=== PATIENT | female | born 1960 | race Caucasian/White ===

== ENCOUNTER 2017-10-19 10:51 | Inpatient (IN) | payer OTHER ==
[2017-10-19] MEDS: SOD CHLORIDE 0.9% 1,270 ML IV (11:44)
[2017-10-19 11:56] LABS: ABNORMAL IP MESSAGE 1; HEMATOCRIT 31.9 % (37.0-47.0); HEMOGLOBIN 11.1 g/dl (12.0-16.0); MEAN CORPUSCULAR HEMOGLOBIN 29.4 pg (29.0-33.0); MEAN CORPUSCULAR HGB CONC 34.8 g/dl (32.0-37.0); MEAN CORPUSCULAR VOLUME 84.6 fl (82.0-101.0); MEAN PLATELET VOLUME 11.5 fl (7.4-10.4); PLATELET COUNT 83 10^3/UL (140-415); RED BLOOD COUNT 3.77 10^6/ul (4.20-5.40)
[2017-10-19 11:58] LABS: POSITIVE DIFF @See below
[2017-10-19 11:59] LABS: ADD MAN DIFF? YES
[2017-10-19 12:17] LABS: INR 1.85; PROTIME 21.8 Sec (11.9-14.9); PT RATIO 1.7
[2017-10-19 12:18] LABS: PARTIAL THROMBOPLASTIN TIME 31.1 Sec (25.0-35.0)
[2017-10-19 12:24] LABS: ANISOCYTOSIS 2+ (0-0); BAND NEUTROPHILS #M 4.5 10^3/ul (0.0-0.6); BAND NEUTROPHILS % (M) 19 % (0-4); HYPOCHROMASIA 1+ (0-0); LYMPHOCYTES #M 0.7 10^3/ul (0.8-2.9); LYMPHOCYTES % (M) 3 % (15-51); MONOCYTE #M 1.2 10^3/ul (0.3-0.9); MONOCYTES % (M) 5 % (0-11); PLATELET ESTIMATE DECREASED; POIKILOCYTOSIS 1+ (0-0); POLYCHROMASIA 3+ (0-0); SEG NEUT #M 18.6 10^3/ul (1.6-7.5); SEGMENTED NEUTROPHILS (M) % 73 % (39-77); SMUDGE%M 2 % (0-0); TOXIC GRANULATION 2+ (0-0)
[2017-10-19] MEDS: CEFEPIME 1GM/50 ML (PMX) 50 ML IVPB (12:44)
[2017-10-19 12:59] LABS: ADD UMIC YES; UR ASCORBIC ACID NEGATIVE (NEGATIVE); UR BILIRUBIN (Dip) 1+ mg/dL (NEGATIVE); UR BLOOD (Dip) 2+ mg/dL (NEGATIVE); UR CLARITY SLIGHTLY CLOUDY (CLEAR); UR COLOR AMBER (YELLOW); UR GLUCOSE (Dip) NEGATIVE (NEGATIVE); UR KETONES (Dip) NEGATIVE (NEGATIVE); UR LEUKOCYTE ESTERASE (Dip) NEGATIVE Leu/ul (NEGATIVE); UR NITRITE (Dip) NEGATIVE (NEGATIVE); UR RBC 4 /HPF (0-5); UR SPECIFIC GRAVITY (Dip) 1.015 (1.003-1.030); UR TOTAL PROTEIN (Dip) NEGATIVE (NEGATIVE); UR UROBILINOGEN (Dip) 2+ mg/dL (NEGATIVE); UR WBC 2 /HPF (0-5)
[2017-10-19] MEDS: metroNIDAZOLE 500 MG/NS (PMX) 100 ML IVPB (13:04)
[2017-10-19 13:08] LABS: AMMONIA 37 umol/l (9-30)
[2017-10-19 13:12] LABS: LACTIC ACID 7.9 mmol/L (0.5-2.0)
[2017-10-19 13:20] LABS: ANION GAP 20 (8-16)
[2017-10-19] MEDS ORDERED: ACETAMINOPHEN 325 MG TAB PO ×2 (13:30→14:30)
[2017-10-19] MEDS ORDERED: ONDANSETRON 4 MG INJ IV ×2 (13:30→14:30)
[2017-10-19 13:32] LABS: FREE THYROXINE INDEX (Calc) 1.92 ug/ml (0.65-3.89); T3 UPTAKE 56.4 % (23.5-40.5); T4 (THYROXINE) 3.4 ug/dl (5.5-11.0)
[2017-10-19 13:55] LABS: POTASSIUM 7.1 mmol/L (3.5-5.1)
[2017-10-19 13:56] LABS: SODIUM 116 mmol/L (135-144)
[2017-10-19 13:57] LABS: ACETAMINOPHEN < 10.0 ug/ml (10.0-30.0); ALANINE AMINOTRANSFERASE 793 IU/L (13-69); ALKALINE PHOSPHATASE 705 IU/L (42-121); BILIRUBIN,INDIRECT 1.1 mg/dl (0-1.1); BLOOD UREA NITROGEN 38 mg/dl (7-20); CALCIUM 7.5 mg/dl (8.4-10.2); CARBON DIOXIDE 19 mmol/L (21-31); ETHANOL < 10.0 mg/dl; GLUCOSE 59 mg/dl (70-220); SALICYLATE < 1.0 mg/dl (5.0-30.0); TOTAL PROTEIN 4.2 g/dl (6.1-8.1)
[2017-10-19 13:58] LABS: CHLORIDE 84 mmol/L (97-110)
[2017-10-19] MEDS: NA BICARBONATE 8.4% 50 ML SYG IV (14:22)
[2017-10-19] MEDS: CA CHLORIDE 10% 10 ML SYRINGE IV (14:23)
[2017-10-19] MEDS: DEXTROSE 5%-0.45% NACL 1,000 ML IV (14:23)
[2017-10-19] MEDS: VANCOMYCIN 1 GM (PMX) 250 ML IVPB (14:23)
[2017-10-19] MEDS: DEXTROSE 50% 50 ML SYRINGE IV (14:23)
[2017-10-19] MEDS: FENTAnyl 50 MCG/ML VIAL IV (14:25)
[2017-10-19] MEDS: INSULIN REGULAR, HUMAN 100 UNIT/1 ML 3ML VIAL IVP (14:26)
[2017-10-19] MEDS ORDERED: NACL 0.9% 3 ML SYG IV (14:30)
[2017-10-19] MEDS ORDERED: VANCOMYCIN IV PER PHARMACY XX (14:30)
[2017-10-19] MEDS ORDERED: DOCUSATE SODIUM 100 MG CAP PO (14:30)
[2017-10-19] MEDS: ALBUTEROL 0.5% (NEB) 2.5 MG/0.5 ML AMP INH (14:30)
[2017-10-19] MEDS ORDERED: morphine 2 MG INJ IV ×2 (14:30→15:30)
[2017-10-19] MEDS ORDERED: HYDROCODONE/APAP (5/325) TAB PO ×2 (14:30)
[2017-10-19] MEDS ORDERED: MAGNESIUM HYDROXIDE 30ML CUP PO (14:30)
[2017-10-19] MEDS ORDERED: SOD CHLORIDE 0.9% 1,000 ML IV ×2 (14:30→16:00)
[2017-10-19] MEDS ORDERED: ACETAMINOPHEN 650 MG SUPP PR (14:30)
[2017-10-19] MEDS ORDERED: BISACODYL 10 MG SUPP PR (14:30)
[2017-10-19] MEDS: FUROSEMIDE 40 MG INJ IV (14:33)
[2017-10-19 14:57] LABS: TROPONIN-I < 0.012 ng/ml (0.000-0.120)
[2017-10-19 14:59] LABS: CREATININE 1.47 mg/dl (0.44-1.00)
[2017-10-19 15:36] LABS: ASPARTATE AMINO TRANSFERASE 5968 IU/L (15-46)
[2017-10-19] MEDS: DEXTROSE 5%-0.9% NACL 1,000 ML IV (16:26)
[2017-10-19] MEDS ORDERED: PIPER-TAZO 3.375 GM IV (PMX) 100 ML IVPB (17:00)
[2017-10-19] MEDS: PIPER-TAZO 2.25 GM (PMX) 50 ML IVPB (18:33)
[2017-10-19] MEDS ORDERED: CEFEPIME 2GM/50 ML (PMX) 50 ML IVPB (21:00)
[2017-10-19] MEDS: HYDROmorphONE 0.5 MG/0.5 ML SYG IV (21:27)
[2017-10-20] MEDS: PIPER-TAZO 2.25 GM (PMX) 50 ML IVPB ×3 (02:27→11:16)
[2017-10-20] MEDS: DEXTROSE 5%-0.9% NACL 1,000 ML IV ×2 (02:57→11:55)
[2017-10-20] MEDS ORDERED: PANTOPRAZOLE 40 MG INJ IV (06:00)
[2017-10-20] MEDS: HYDROmorphONE 0.5 MG/0.5 ML SYG IV (06:26)
[2017-10-20] MEDS ORDERED: VITAMIN A & D 5 GM OINT PACKET TOP (10:36)
== END 2017-10-20 15:15 | disposition expired | DRG 871 ==
LOC: 2NE 10-20 13:46 → E/R 10:51 → TEL 13:26
PROVIDERS: Hospitalist
DX: A41.9 Sepsis, unspecified organism (principal); G93.41 Metabolic encephalopathy; C25.9 Malignant neoplasm of pancreas, unspecified; C78.7 Secondary malignant neoplasm of liver and intrahepatic bile duct; C78.6 Secondary malignant neoplasm of retroperitoneum and peritoneum; N17.9 Acute kidney failure, unspecified; E87.1 Hypo-osmolality and hyponatremia; E87.2 Acidosis; E46 Unspecified protein-calorie malnutrition; Z68.1 Body mass index [BMI] 19.9 or less, adult; E86.0 Dehydration; E87.5 Hyperkalemia; E16.2 Hypoglycemia, unspecified; G89.3 Neoplasm related pain (acute) (chronic)
CPT/HCPCS: 71045; 80053; 80307; 81001; 82140; 82962; 83605; 84436; 84479; 84484; 85025; 85610; 85730; 87040; 87086; 93005; 94664; 96374; 96375; 99291-25